=== PATIENT | male | born 1950 | race Caucasian/White ===

== ENCOUNTER 2018-03-01 06:51 | Day surgery (SDC) | payer MEDICARE ==
[2018-02-28 15:17] VITALS: BMI 36.9
[2018-03-01] MEDS ORDERED: Bupivacaine HCl 0.5%/Epinephrine 1:200,000/PF 30 ml Vial ONE (09:04)
[2018-03-01] MEDS ORDERED: Lidocaine 2% PF 5 ML VIAL ONE (09:04)
[2018-03-01] MEDS ORDERED: Levofloxacin 500 mg/D5W 100 ml Premix Bag ONE (09:04)
[2018-03-01] MEDS ORDERED: Fentanyl 100 MCG/2 ML VIAL ONE (09:12)
[2018-03-01] MEDS ORDERED: Propofol 1,000 MG/100 ML VIAL IV ONE (09:13)
[2018-03-01] MEDS ORDERED: PROPOFOL 200 MG/20 ML VIAL ONE (12:58)
--- NOTE | 2018-03-01 15:02 | OP ---
DATE OF PROCEDURE: 03/01/2018 PREOPERATIVE DIAGNOSIS: Malignant melanoma, depth 0.22 mm. POSTOPERATIVE DIAGNOSIS: Malignant melanoma, depth 0.22 mm. PROCEDURES PERFORMED: 1. Wide local excision of malignant melanoma, left upper extremity, 3 cm in greatest diameter. 2. Complex closure with extensive undermining, left upper extremity wound, 9 cm in length. ANESTHESIA: TIVA, local. ESTIMATED BLOOD LOSS: Minimal. COMPLICATIONS: None. SPECIMEN: Left arm specimen marked with two short superior and one long lateral, sent to Pathology for final diagnosis. DESCRIPTION OF PROCEDURE: The patient was taken to the operating room and laid supine on the operating room table. After sedation was obtained, the left upper arm was prepped and draped in a sterile fashion. Elliptical incision was performed with a diameter of 3 cm and diameter of 9 cm long vertically on the left upper arm sharply. Dissection was performed down to the fascia. The full-thickness subcutaneous fat all the way down to fascial incision was performed. The specimen was removed and marked as above. The wound was irrigated. Local anesthetic was applied and meticulous hemostasis was obtained. The wound was closed using 3-0 Vicryl, 4-0 Monocryl, and Dermabond. Extensive undermining was performed to facilitate closure with no tension prior to closure. Job ID: [id number]
--- NOTE | 2018-03-07 06:01 | PQF ---
[facility] POST DISCHARGE CLINICAL DOCUMENTATION IMPROVEMENT CLARIFICATION FORM l Todays Date: 03/07/18 l Patients Name JOSE MARTIN SUTTON l l Admit Date 03/01/18 l Disch Date 03/01/18 Solar Installation Technician Name Santiago Fung Email: [email or web address] Cell: [phone] To be completed by Solar Installation Technician: Present Clinical Indicators - Signs / Symptoms Results and Location in Medical Record [ ] Documentation of: [ ] [ ] Documentation of: [ ] [ ] Documentation of: [ ] [ ] Documentation of: [ ] [ ] Risks [ ] [ ] [ ] Treatment [ ] MELANOMA LEFT ARM QUERY FOR MARGINS OF EXCISED ARM LESION [ ] [ ] To be completed by Physician: RUTH HUBBARD The documentation in this patients record requires clarification to ensure coding compliance and accuracy. Check the appropriate box and include in your discharge summary. [ ] [ ] [x ] total diameter including margin3 cm as stated in op note [ ] Please check this box if this does not apply to this patient [ ] Unable to determine [ ] Other diagnosis: Review the following information and exercise your independent professional judgment in responding to the clarification. Based upon the clinical findings, risk factors, and treatment, please clarify if you are treating one of the above probable or suspected diagnoses. Physician Signature: Date Time MTDD
== END 2018-03-01 10:52 | disposition home or self-care (01) ==
LOC: SDC 06:51
PROVIDERS: ATTEND Surgery
PROC: 0HBCXZZ Excision of Left Upper Arm Skin, External Approach (ICD-10-PCS; principal; 2018-03-01)
DX: C43.62 Malignant melanoma of left upper limb, including shoulder (principal); I25.10 Atherosclerotic heart disease of native coronary artery without angina pectoris; I48.91 Unspecified atrial fibrillation; E27.1 Primary adrenocortical insufficiency; Z79.82 Long term (current) use of aspirin; Z79.84 Long term (current) use of oral hypoglycemic drugs; Z79.52 Long term (current) use of systemic steroids; Z79.899 Other long term (current) drug therapy; Z88.0 Allergy status to penicillin; Z91.048 Other nonmedicinal substance allergy status
CPT/HCPCS: 88305; J0670; J1956; J2001; J2704; J3010

== ENCOUNTER 2019-03-24 11:56 | Outpatient (CLI) | payer MEDICARE ==
[2019-03-24 12:57] LABS: Hemoglobin 14.9 g/dL (14.0-18.0); Mean Corpuscular HGB CONC 32.5 g/dL (32.0-36.0); Mean Corpuscular Hemoglobin 32.4 pg (27.0-31.0); Mean Corpuscular Volume 99.7 fL (78.0-98.0); Mean Platelet Volume 8.9 fL (7.4-10.4); Platelet Count 211 thou/uL (130-400); RBC Distribution Width 11.8 % (11.5-14.5); White Blood Cell (WBC) Count 6.4 thou/uL (4.8-10.8)
[2019-03-24 13:02] LABS: PTT 26.9 SEC (22.9-36.1); Prothrombin Time 12.8 SEC (12.0-14.7)
[2019-03-24 13:41] LABS: Anion Gap 14 mmol/L (10-20); BUN (Urea Nitrogen) 10 mg/dL (8.4-25.7); Calc. Creatinine Clearance 0 mL/min (70-130); Calcium 9.8 mg/dL (7.8-10.44); Carbon Dioxide 23 mmol/L (23-31); Chloride 109 mmol/L (98-107); Estimated GFR-MDRD 83; Glucose 109 mg/dL (80-115); Potassium 4.1 mmol/L (3.5-5.1); Sodium 142 mmol/L (136-145)
--- NOTE | 2019-03-27 00:19 | EKG ---
Test Reason : Blood Pressure : / mmHG Vent. Rate : 066 BPM Atrial Rate : 066 BPM P-R Int : 206 ms QRS Dur : 092 ms QT Int : 396 ms P-R-T Axes : 081 -54 061 degrees QTc Int : 415 ms Normal sinus rhythm with sinus arrhythmia Left axis deviation Inferior infarct (cited on or before 14-MAY-2002) Cannot rule out Anterior infarct (cited on or before 28-AUG-2016) Abnormal ECG When compared with ECG of 28-AUG-2016 13:10, KS interval has decreased Confirmed by Lamont KOCH ([id number]) on 03/27/2019 12:18:36 AM Referred By: ANUPAMA Confirmed By:Lamont KOCH
== END 2019-03-24 11:57 | disposition home or self-care (01) ==
LOC: LABBT 11:56
PROVIDERS: ATTEND Internal Medicine Cardiovascular Disease
DX: Z01.818 Encounter for other preprocedural examination (principal); I48.91 Unspecified atrial fibrillation
CPT/HCPCS: 80048; 85027; 85610; 85730; 93005; 93010

== ENCOUNTER 2019-03-28 05:56 | Observation (INO) | payer MEDICARE ==
[2019-03-28] MEDS ORDERED: Fentanyl 100 MCG/2 ML VIAL ONE (06:42)
[2019-03-28] MEDS ORDERED: Heparin (Artline) 500 ML ONE (06:57)
[2019-03-28] MEDS ORDERED: Phenylephrine HCL 10 MG/ML VIAL ONE (07:00)
[2019-03-28] MEDS ORDERED: Heparin 10,000 UNITS/1 ML VIAL ONE ×4 (07:11→11:38)
[2019-03-28] MEDS ORDERED: Hydrocortisone Sod Succ/PF 100 mg/2 ml Vial ONE (08:50)
[2019-03-28] MEDS ORDERED: Isoproterenol 0.2 MG/1 ML AMP ONE (11:42)
[2019-03-28] MEDS ORDERED: Protamine Sulfate 50 MG/5 ML VIAL ONE (12:45)
[2019-03-28] MEDS ORDERED: Glycopyrrolate 0.2 MG/ML 5 ML SYRINGE ONE (13:15)
[2019-03-28] MEDS ORDERED: Dexamethasone 20 MG/5 ML VIAL ONE (13:15)
[2019-03-28] MEDS ORDERED: Rocuronium Bromide 10 MG/ML (10ML VIAL) ONE (13:15)
[2019-03-28] MEDS ORDERED: PHENYLEPHRINE-NS 100 MCG/ML 10 ML SYRINGE ONE (13:15)
[2019-03-28] MEDS ORDERED: Succinylcholine Chloride 20 MG/ML 10 ml SYRINGE FS ONE (13:15)
[2019-03-28] MEDS ORDERED: Ondansetron PF 4 MG/2 ML Vial ONE (13:15)
[2019-03-28] MEDS ORDERED: PROPOFOL 200 MG/20 ML VIAL ONE (13:15)
[2019-03-28] MEDS ORDERED: Lidocaine 1% PF 5 ML VIAL ONE (13:15)
[2019-03-28] MEDS ORDERED: Furosemide 40 MG/4 ML VIAL ONE (14:12)
[2019-03-28] MEDS ORDERED: Furosemide 20 MG/2 ML VIAL ONE (14:12)
[2019-03-28 15:07] VITALS: BMI 41.1
[2019-03-28] MEDS: metFORMIN 500 MG TAB PO SCH (17:25)
--- NOTE | 2019-03-28 19:25 | OP ---
DATE OF PROCEDURE: 03/28/2019 PROCEDURE PERFORMED: Comprehensive EP testing with 3D mapping and ablation of atrial fibrillation and atypical flutter. CLINICAL INDICATION: Previous atrial fibrillation with incessant atypical flutter. ASA CLASSIFICATION: III. ANESTHESIA: General endotracheal anesthesia per Anesthesiology. ADDITIONAL CARDIAC MEDICATIONS: Isoproterenol 10 mcg/minute infusion. TOTAL HEPARIN GIVEN: 22,000 units. TOTAL PROTAMINE GIVEN: 40 mg. ACUTE COMPLICATIONS: None apparent. TOTAL ABLATION TIME: 1 hour 16 minutes 18 seconds. TOTAL FLUOROSCOPY: Zero. METHODS: After informed consent was obtained, the patient was taken to the EP lab in a fasting state. Both groins were prepped and draped. Using ultrasound guidance, the right and left femoral veins were accessed, and wires were inserted into the central venous system. Wires were used to place an 8-Czech and an 11-Czech sheaths in the left groin and two 8-Czech sheaths in the right groin. All 8-Czech sheaths were replaced by long sheaths for catheter stability. An echo probe was placed in the left groin and advanced to the right atrium and right ventricle for imaging. A circular and ablation catheters were placed in the right groin and advanced up to the right atrium and the coronary sinus. A 3D map was obtained. The patient was then fully anticoagulated. Transseptal catheterization was performed with ultrasound guidance, and a 3D map was obtained of the left atrium. A temperature probe was placed in the esophagus adjacent to a sensor for visualization of the 3D mapping system. Ablation was delivered re-isolating the posterior wall of the left atrium as well as the roof and the floor of the left atrium and the coronary sinus. The patient was found to have multiple flutters, which were entrained to both the right atrium and the left atrium. At the conclusion of procedure, catheters were withdrawn. Heparin was reversed. Sheaths were pulled. Hemostasis was achieved with suture closure. RESULTS: 1. Baseline intervals: Initial flutter cycle length 240 milliseconds, HV interval 63 milliseconds and did not change throughout the procedure. 2. Atrial function: The patient was originally in an atypical flutter at 240 milliseconds. This was mapped to the roof of the left atrium and ablated. This converted to a slower flutter, which was mapped to the right atrial roof, which was ablated. Another flutter was found in the posterior wall, where residual conduction was seen between the pulmonary veins. This was ablated, and finally, an atrial tachycardia was found in the low right atrium, which was ablated. The coronary sinus was re-isolated, and the SVC was also isolated. 3. Ablation details: A total of 1 hour 16 minutes 18 seconds of RF was delivered with a [employer] [place] open-irrigated, contact force, sensor enabled ablation catheter. IMPRESSION: Successful ablation of 4 atypical flutters and circuit for atrial fibrillation. RECOMMENDATION: Continue with anticoagulation for a minimum of 3 months. Job ID: [id number]
[2019-03-28] MEDS ORDERED: Aspirin 81 mg Enteric Coated Tablet PO SCH (21:00)
[2019-03-28] MEDS ORDERED: Multivit, Therapeutic 1 TAB PO SCH (21:00)
[2019-03-28] MEDS ORDERED: Rosuvastatin 10 MG TAB PO SCH (21:00)
[2019-03-28] MEDS: Furosemide 40 MG/4 ML VIAL SLOW IVP SCH (21:12)
[2019-03-29 07:52] VITALS: BP 147/70; TEMP 98.7
[2019-03-29] MEDS ORDERED: predniSONE 5 MG TAB PO SCH (09:00)
[2019-03-29] MEDS ORDERED: Rivaroxaban 10 MG TAB PO SCH (09:00)
[2019-03-29] MEDS ORDERED: Fenofibrate Nanocrystallized 145 MG TAB PO SCH (09:00)
[2019-03-29] MEDS ORDERED: Fludrocortisone Acetate 0.1 MG TAB PO SCH (09:00)
[2019-03-29] MEDS: metFORMIN 500 MG TAB PO SCH (09:13)
[2019-03-29] MEDS: Furosemide 40 MG/4 ML VIAL SLOW IVP SCH (09:15)
--- NOTE | 2019-03-30 05:20 | DIS ---
DATE OF ADMISSION: 03/28/2019 DATE OF DISCHARGE: 03/29/2019 DIAGNOSIS: Atrial fibrillation. PROCEDURES PERFORMED: Successful ablation of four atypical flutters and circuit for atrial fibrillation with electrophysiology study and three-dimensional mapping. Total ablation time 1 hour and 16 minutes and 18 seconds. COMPLICATIONS: None. HISTORY OF PRESENT ILLNESS: Mr. Garza is a pleasant 68-year-old gentleman with history of persistent atrial arrhythmias . His first ablation in 2010 was extensive at 105 minutes. Subsequent redo ablations were significantly smaller requiring 20 minutes and 5 minutes respectively. He also had CTI ablation, which is his most recent ablation. He had recurrent incessant atypical atrial flutter and was taken back to the EP lab by Dr. Saucedo, where he was found to be in atypical atrial flutter that was mapped to the left atrium roof and was ablated. Subsequent flutter was then mapped to the right atrial roof that was ablated. The third flutter was found in the posterior wall, where there was residual connection seen between the pulmonary veins, which was ablated. Finally, atrial tachycardia was found in the low right atrium that was ablated. Coronary sinus was re-isolated and SVC was also isolated. A total of 1 hour 16 minutes 18 seconds RF energy lesions were delivered. The patient has been stable overnight. He is not having any shortness of breath, chest pain, palpitations, bleeding at the groin sites and feels well, eager to discharge home. REVIEW OF SYSTEMS: 12-point review of systems was negative except that listed above in the HPI. OBJECTIVE: GENERAL: The patient is alert and oriented. Speech is clear. Affect is appropriate. He is in no apparent distress. NECK: Supple without jugular venous distention. LUNGS: There are some fine crackles in the right lower lobe. Otherwise, lungs are clear to auscultation. Respirations are even and unlabored with good bilateral excursion. HEART: Rate is irregularly irregular with crisp S1 and S2. PMI is nondisplaced. ABDOMEN: Obese, soft, and nontender without palpable masses. Hepatojugular reflux is negative. EXTREMITIES: Warm and dry to touch. Well perfused without clubbing, cyanosis, or edema. Bilateral groin sites are stable. No evidence of bleeding or internal hematoma, and mild tenderness on palpation is seen. NEUROLOGIC: Grossly intact and nonfocal. Gait is stable. VITAL SIGNS: Temperature 98.7 degrees Fahrenheit, pulse 61, blood pressure is 135/69, respirations 18, and oxygen is 97% on room air. CONDITION AT DISCHARGE: Stable. DISCHARGE INSTRUCTIONS: No lifting more than 10 pounds for 1 week. No soaking baths for 1 week. DISCHARGE MEDICATIONS: 1. Prednisone daily. 2. Crestor 10 mg at bedtime. 3. Metformin 500 mg p.o. b.i.d. 4. Multivitamin at bedtime. 5. Florinef 0.1 mg daily. 6. Tricor 145 mg q.a.m. 7. Vitamin D3 of 2000 units daily. 8. Sildenafil as needed. New prescriptions: 1. Carafate 1 g p.o. q.i.d. x2 weeks. 2. Xarelto 20 mg p.o. q.p.m. 3. Protonix 40 mg daily for 30 days. 4. Furosemide 40 mg p.o. p.r.n. shortness of breath to be taken with 20 mEq potassium and colchicine 0.6 mg p.o. b.i.d. x2 weeks. DISCHARGE INSTRUCTIONS: The patient will continue anticoagulation with Xarelto. He does have an inclusion of Watchman at this point. We will continue anticoagulation with recent ablation during the acute inflammatory and recovery phase. Long-term, he will not require anticoagulation if left atrial appendage has been closed. He will continue his medication until directed to discontinue by TCA. He has maintained sinus rhythm overnight with no early recurrence thus far. His vital signs are stable. He is in good condition to discharge home. We will see him back in 6 weeks or sooner if symptoms dictate. Job ID: [id number]
== END 2019-03-29 12:23 | disposition home or self-care (01) ==
LOC: CCL 05:56 → 2SW 13:16
PROVIDERS: ADMIT Internal Medicine Cardiovascular Disease; ATTEND Internal Medicine Cardiovascular Disease
PROC: 4A023FZ Measurement of Cardiac Rhythm, Percutaneous Approach (ICD-10-PCS; principal; 2019-03-28)
PROC: 4A0234Z Measurement of Cardiac Electrical Activity, Percutaneous Approach (ICD-10-PCS; 2019-03-28)
PROC: 02583ZZ Destruction of Conduction Mechanism, Percutaneous Approach (ICD-10-PCS; 2019-03-28)
DX: I48.19 Other persistent atrial fibrillation (principal); I48.92 Unspecified atrial flutter; G47.30 Sleep apnea, unspecified; E78.5 Hyperlipidemia, unspecified; E11.9 Type 2 diabetes mellitus without complications; E27.1 Primary adrenocortical insufficiency; Z79.84 Long term (current) use of oral hypoglycemic drugs; Z79.82 Long term (current) use of aspirin; Z79.899 Other long term (current) drug therapy; Z86.73 Personal history of transient ischemic attack (TIA), and cerebral infarction without residual deficits; Z88.0 Allergy status to penicillin; Z88.8 Allergy status to other drugs, medicaments and biological substances; Z99.89 Dependence on other enabling machines and devices
CPT/HCPCS: 76942; 85347 ×2; 92960; 93005 ×2; 93613; 93623; 93655; 93656; 93662; 96374; 96376; C1731; C1732 ×2; C1759; C1760; C1769; G0378 ×2; 93010; J1100; J1644; J1720; J1940; J2001; J2370; J2405; J2704; J2720; J3010; J7512

== ENCOUNTER 2020-03-12 17:23 | Inpatient (IN) | payer MEDICARE ==
[~2020-03-12 17:23] MED LIST: Iopamidol-370 76% 500 ML 1 ML ONE
[2020-03-12 18:17] LABS: #Basophils 0.1 thou/uL (0.0-0.2); #Eosinphils 0.1 thou/uL (0.0-0.7); #Lymphocytes 1.5 thou/uL (1.20-3.40); #Monocytes 0.9 thou/uL (0.11-0.59); #Neutrophils 8.5 thou/uL (1.40-6.50); %Basophils 0.6 % (0.0-1.0); %Eosinophils 0.8 % (0.0-10.0); %Lymphocytes 13.3 % (21.0-51.0); %Monocytes 8.1 % (0.0-10.0); %Neutrophils 77.2 % (42.0-75.0); Hemoglobin 15.3 g/dL (14.0-18.0); Mean Corpuscular HGB CONC 34.1 g/dL (32.0-36.0); Mean Corpuscular Hemoglobin 33.3 pg (27.0-31.0); Mean Corpuscular Volume 97.6 fL (78.0-98.0); Mean Platelet Volume 8.3 fL (7.4-10.4); Platelet Count 270 thou/uL (130-400); RBC Distribution Width 11.7 % (11.5-14.5); Red Blood Cell (RBC) Count 4.59 mill/uL (4.70-6.10)
[2020-03-12] MEDS ORDERED: Diltiazem 125 MG/25 ML ONE ×2 (18:19→18:23)
[2020-03-12 18:41] LABS: ALT (SGPT) 29 U/L (8-55); AST (SGOT) 21 U/L (5-34); Albumin 4.5 g/dL (3.4-4.8); Alkaline Phosphatase 43 U/L (40-110); Anion Gap 15 mmol/L (10-20); BUN (Urea Nitrogen) 15 mg/dL (8.4-25.7); Bilirubin, Total 0.8 mg/dL (0.2-1.2); Calc. Creatinine Clearance 0 mL/min (70-130); Calcium 10.2 mg/dL (7.8-10.44); Carbon Dioxide 23 mmol/L (23-31); Chloride 104 mmol/L (98-107); Globulin 2.5 g/dL (2.4-3.5); Glucose 132 mg/dL (83-110); Potassium 4.3 mmol/L (3.5-5.1); Sodium 138 mmol/L (136-145)
--- NOTE | 2020-03-12 18:56 | RAD ---
PORTABLE CHEST: 03/12/20 HISTORY: Increasing shortness of breath. Status post shoulder surgery on . Heart size is borderline. There is elevation of the right hemidiaphragm. There is some subsegmental a telectatic changes in the lung bases. IMPRESSION: Subsegmental atelectasis in the lung bases. POS: OFF
[2020-03-12] MEDS ORDERED: HYDROcodone/Acetaminophen 5/325 mg Tablet ONE (20:03)
--- NOTE | 2020-03-12 20:11 | CT ---
CT ANGIO OF CHEST PERFORMED WITH INTRAVENOUS CONTRAST ENHANCEMENT WITH 3D RECONSTRUCTIONS: 03/12/20 HISTORY: Shortness of breath. History of rotator cuff surgery last . The lungs are clear of any focal infiltrative process. There are atelectatic changes seen in the lung bases. The thoracic aorta is normal in caliber. A Watchman type occlusive device is seen within the left atrial appendage. There is good pulmonary artery opacification. There is evidence of bilateral upper and lower lobe pul monary emboli. Right ventricle does not appear dilated. No bowing of the septum. Visualized liver parenchyma shows no focal findings. IMPRESSION: Bilateral pulmonary emboli. POS: OFF
[2020-03-12] MEDS ORDERED: Enoxaparin Sodium 30 MG/0.3 ML SYRINGE ONE (20:47)
[2020-03-12] MEDS ORDERED: Enoxaparin Sodium 100 MG/ML SYRINGE ONE (20:47)
[2020-03-12] MEDS ORDERED: Morphine 2 MG/ML VIAL SLOW IVP PRN (21:25)
[2020-03-12] MEDS ORDERED: Dextrose 50% Abboject 50 ML SYRINGE SLOW IVP PRN (21:27)
[2020-03-12] MEDS ORDERED: Dextrose 5% in Water 1,000 ML IV PRN (21:27)
[2020-03-12] MEDS ORDERED: HumaLOG 300 UNITS/3 ML VIAL SC PRN (21:27)
--- NOTE | 2020-03-12 21:29 | PDOC.HHP ---
Hospitalist HPI - History of Present Illness Shortness of breath History of Present Illness: This is a 69-year-old male patient with a history of atrial fibrillation s/p watchman/ablation, he has been off anticoagulation for a while. Also has diabetes, [place] disease hypertension and hyperlipidemia. He presents today with worsening shortness of breath which started after having had surgery for his right rotator cuff repair 5 days ago. CTA notes bilateral PE. A day after surgery patient notes that he started having mild shortness of breath which progressively worsened. He decided to come to the ED for further evaluation. At presentation blood pressure was 149/79, pulse 93, respiratory rate 22, temperature 98.9 and saturating 94% on room air. While being monitored it was noted that his heart went into atrial fibrillation with RVR for which she was given diltiazem 20 mg IV push and 5 mg per with reversion to regular rate. Labs showed a mild leukocytosis of 11.0, hemoglobin 15.3, platelets 270 D-dimer was 3.48. Chemistry was essentially within normal limits. Chest x-ray showed subsegmental atelectasis in lung bases with a CTA ultimately revealing bilateral pulmonary embolism. He was started on 1 mg/kg Lovenox Hospitalist team consulted for admission Hospitalist ROS - Review of Systems Constitutional: denies: fever, chills, sweats Respiratory: reports: shortness of breath, SOB with excertion. denies: cough, hemoptysis Cardiovascular: denies: chest pain, palpitations, orthopnea, paroxysmal noc. dyspnea Genitourinary: denies: dysuria, frequency, incontinence Neurological: denies: weakness, numbness, incoordination All other systems reviewed; all pertinent +/- noted in HPI/Subj - Medication Medications: Medications: Currently refer to ambulatory list. Allergies: Penicillin, prasugrel Hospitalist History - Past Medical History Cardiac: reports: AFIB, HTN - Past Surgical History Other Surgical History: Watchman procedure, A. fib ablation - Family History Family History: reports: no pertinent history - Social History Smoking Status: Never smoker Alcohol: reports: Occassional Living Situation: With Family - Exam General Appearance: awake alert General - other findings: Mild respiratory distress Eye: PERRL, anicteric sclera Neck: supple, symmetric, no JVD Heart: RRR, no murmur, no gallops Respiratory: CTAB, no wheezes, no rales, no ronchi Gastrointestinal: soft, non-tender, non-distended, normal bowel sounds Extremities: no cyanosis, no clubbing, no edema Neurological: cranial nerve grossly intact, no weakness, no focal deficits Musculoskeletal: normal tone, normal strength Psychiatric: normal affect, normal behavior, A&O x 3 Hospitalist Results - Labs Result Diagrams: 03/14/20 05:23 03/14/20 05:23 Lab results: WBC 11.0 thou/uL (4.8-10.8) H 03/12/20 17:53 Hgb 15.3 g/dL (14.0-18.0) 03/12/20 17:53 Hct 44.8 % (42.0-52.0) 03/12/20 17:53 MCV 97.6 fL (78.0-98.0) 03/12/20 17:53 Plt Count 270 thou/uL (130-400) 03/12/20 17:53 Neutrophils % 77.2 % (42.0-75.0) H 03/12/20 17:53 Sodium 138 mmol/L (136-145) 03/12/20 17:53 Potassium 4.3 mmol/L (3.5-5.1) 03/12/20 17:53 Chloride 104 mmol/L (98-107) 03/12/20 17:53 Carbon Dioxide 23 mmol/L (23-31) 03/12/20 17:53 BUN 15 mg/dL (8.4-25.7) 03/12/20 17:53 Creatinine 0.95 mg/dL (0.7-1.3) 03/12/20 17:53 Glucose 132 mg/dL (83-110) H 03/12/20 17:53 Calcium 10.2 mg/dL (7.8-10.44) 03/12/20 17:53 Total Bilirubin 0.8 mg/dL (0.2-1.2) 03/12/20 17:53 AST 21 U/L (5-34) 03/12/20 17:53 ALT 29 U/L (8-55) 03/12/20 17:53 Alkaline Phosphatase 43 U/L (40-110) 03/12/20 17:53 Troponin I 0.020 ng/mL (< 0.028) 03/12/20 17:53 Serum Total Protein 7.0 g/dL (5.8-8.1) 03/12/20 17:53 Albumin 4.5 g/dL (3.4-4.8) 03/12/20 17:53 Hospitalist H&P A/P - Plan Plan: This is a [id number]-year-old patient with history of A. fib, hypertension who presents with shortness of breath status post right rotator cuff repair and found to have bilateral PE. Bilateral PE Likely post surgical Start anticoagulation on Lovenoxtransition to DOAC on discharge Monitor on telemetry Oxygen therapy as needed. A. fib with RVR. Patient has A. fib RVR aborted with diltiazem We will have cardiology evaluation in a.m. Hypertension Resume BP meds once verified Rotator cuff surgery Consult surgery for evaluation. [place] disease Resume prednisone and fludrocortisone once verified. VT prophylaxistherapeutic on Lovenox CODE STATUSfull code
[2020-03-12] MEDS: Sodium Chloride 0.9% 1,000 ML IV SCH (22:52)
[2020-03-13] MEDS ORDERED: HYDROcodone/Acetaminophen 7.5/325 mg Tablet ONE (01:20)
[2020-03-13] MEDS: HYDROcodone/Acetaminophen 7.5/325 mg Tablet PO PRN ×4 (01:30→20:30)
[2020-03-13 04:44] LABS: #Basophils 0.1 thou/uL (0.0-0.2); #Eosinphils 0.2 thou/uL (0.0-0.7); #Lymphocytes 2.5 thou/uL (1.20-3.40); #Neutrophils 6.4 thou/uL (1.40-6.50); %Basophils 0.6 % (0.0-1.0); %Eosinophils 1.9 % (0.0-10.0); %Lymphocytes 24.2 % (21.0-51.0); %Monocytes 9.5 % (0.0-10.0); %Neutrophils 63.7 % (42.0-75.0); Hemoglobin 14.8 g/dL (14.0-18.0); Mean Corpuscular HGB CONC 33.5 g/dL (32.0-36.0); Mean Corpuscular Hemoglobin 33.1 pg (27.0-31.0); Mean Corpuscular Volume 98.9 fL (78.0-98.0); Mean Platelet Volume 8.4 fL (7.4-10.4); Platelet Count 226 thou/uL (130-400); RBC Distribution Width 11.7 % (11.5-14.5); Red Blood Cell (RBC) Count 4.45 mill/uL (4.70-6.10); White Blood Cell (WBC) Count 10.1 thou/uL (4.8-10.8)
[2020-03-13 05:26] LABS: Anion Gap 16 mmol/L (10-20); BUN (Urea Nitrogen) 13 mg/dL (8.4-25.7); Calc. Creatinine Clearance 144 mL/min (70-130); Calcium 9.8 mg/dL (7.8-10.44); Carbon Dioxide 22 mmol/L (23-31); Chloride 103 mmol/L (98-107); Glucose 121 mg/dL (83-110); Potassium 3.7 mmol/L (3.5-5.1); Sodium 137 mmol/L (136-145)
[2020-03-13 05:33] VITALS: BMI 39.8
[2020-03-13] MEDS ORDERED: Enoxaparin Sodium 120 MG/0.8 ML SYRINGE SC SCH ×2 (09:00)
--- NOTE | 2020-03-13 12:18 | PDOC.HOSPP ---
- Subjective Encounter Date: 03/13/20 Encounter Time: 12:16 Subjective: Raul dia is a very pleasant 69-year-old who is morbidly obese was admitted to the hospital for worsening shortness of breath. He was noted to have bilateral pulmonary embolism and he is placed in the hospital for anticoa gulation. He was started on Lovenox which she seems to be tolerating so far. I suspect his venous thromboembolism was provoked secondary to the recent surgery and immobilization. He appears to be hemodynamically stable at this time. - Objective Vital Signs & Weight: Vital Signs (12 hours) Temp Pulse Resp BP BP Pulse Ox 03/13/20 08:24 97.8 F 77 22 H 127/69 94 L 03/13/20 05:20 98.9 F 74 22 H 139/83 95 Weight Admit Weight 285 lb 9.6 oz Weight 285 lb 9.6 oz Result Diagrams: 03/13/20 04:27 03/13/20 04:27 Additional Labs: Accuchecks 03/13/20 03/13/20 12:07 05:33 POC Glucose 113 H 112 H Radiology Reviewed by me: Yes EKG Reviewed by me: Yes Hospitalist ROS - Review of Systems Constitutional: reports: weakness, malaise Respiratory: reports: shortness of breath, SOB with excertion Neurological: reports: weakness - Medication Medications: Active Medications Generic Name Dose Route Start Last Admin Trade Name Freq PRN Reason Stop Dose Admin Hydrocodone Bitart/Acetaminophen 1 tab 03/12/20 21:26 03/13/20 05:28 Hydrocodone/Acetaminophen 7.5/325 Mg Tablet PO 1 tab Q4H PRN Administration Mild Pain (1-3) Enoxaparin Sodium 130 mg 03/13/20 09:00 03/13/20 08:32 Enoxaparin Sodium 120 Mg/0.8 Ml Syringe SC 130 mg 0900,2100 AMIE Administration Sodium Chloride 1,000 mls @ 75 mls/hr 03/12/20 21:30 03/12/20 22:52 Normal Saline 0.9% IV 1,000 mls .[id number] AMIE Administration Sodium Chloride 10 ml 03/13/20 09:00 03/13/20 08:33 Flush - Normal Saline 10 Ml Syringe IVF 10 ml Q12HR AMIE Administration - Exam General Appearance: NAD, awake alert Eye: PERRL, anicteric sclera ENT: normocephalic atraumatic, no oropharyngeal lesions Neck: supple, symmetric, no JVD, no thyromegaly Heart: RRR, no murmur Respiratory: CTAB, wheezes Gastrointestinal: soft, non-tender, non-distended, normal bowel sounds Neurological: cranial nerve grossly intact Psychiatric: normal affect, normal behavior, A&O x 3 Hosp A/P (1) Acute pulmonary embolism Code(s): I26.99 - OTHER PULMONARY EMBOLISM WITHOUT ACUTE COR PULMONALE Status: Acute Qualifiers: Pulmonary embolism type: other Acute cor pulmonale presence: without acute cor pulmonale Qualified Code(s): I26.99 - Other pulmonary embolism without acute cor pulmonale Plan: I am going to continue him on anticoagulation. (2) Acute respiratory failure Code(s): J96.00 - ACUTE RESPIRATORY FAILURE, UNSP W HYPOXIA OR HYPERCAPNIA Status: Acute Qualifiers: Respiratory failure complication: hypoxia Qualified Code(s): J96.01 - Acute respiratory failure with hypoxia (3) KIA (obstructive sleep apnea) Code(s): G47.33 - OBSTRUCTIVE SLEEP APNEA (ADULT) (PEDIATRIC) Status: Acute Plan: He can continue his home CPAP as needed. (4) Morbid obesity Code(s): E66.01 - MORBID (SEVERE) OBESITY DUE TO EXCESS CALORIES Status: Acute - Plan old records reviewed/req, PT/OT, DVT proph w/lovenox
[2020-03-13] MEDS: Sodium Chloride 0.9% 1,000 ML IV SCH (13:33)
[2020-03-13] MEDS: Metoprolol Tartrate 25 MG TAB PO SCH ×2 (18:49→20:30)
--- NOTE | 2020-03-13 18:54 | CON ---
DATE OF CONSULTATION: REASON FOR CONSULTATION: Atrial fibrillation. Dr. Starkey is Mr. Garza's primary division leader. HISTORY OF PRESENT ILLNESS: Mr. Garza is a 69-year-old gentleman, who recently diagnosed with pulmonary embolus. He has an extensive history of atrial fibrillation. He has been ablated on several occasions. He has been in sinus rhythm. He has also had a Watchman device. He has been in atrial fibrillation, but appears to be rate controlled. PAST MEDICAL HISTORY: Atrial fibrillation, hypertension, Watchman device, status post ablation. SOCIAL HISTORY: No current tobacco or alcohol use. FAMILY HISTORY: Negative for CAD. REVIEW OF SYSTEMS: A 10-point review of systems is reviewed and as above, otherwise negative. PHYSICAL EXAMINATION: GENERAL: Patient is a pleasant male, who is in no acute distress. The patient appears their stated age. VITAL SIGNS: Blood pressure 112/83, pulse 76, temperature afebrile. NEUROLOGIC: The patient is alert and oriented x3 with no focal neurologic deficits. HEENT: Sclerae without icterus. Mouth has moist mucous membranes with normal pallor. NECK: No JVD. Carotid upstroke brisk. No bruits bilaterally. LUNGS: Clear to auscultation with unlabored respirations. BACK: No scoliosis or kyphosis. CARDIAC: Irregularly regular. ABDOMEN: Soft, nontender, nondistended. No peritoneal signs present. No hepatosplenomegaly. No abnormal striae. EXTREMITIES: 2+ femoral and 2+ dorsalis pedis pulses. No cyanosis, clubbing, or edema. SKIN: No gross abnormalities. PERTINENT LABORATORY DATA: Hemoglobin 14.8, hematocrit 44.1. IMPRESSION: 1. Atrial fibrillation. 2. Pulmonary embolism. RECOMMENDATIONS: 1. Would recommend restarting anticoagulation therapy for PE. 2. The patient currently on metoprolol 12.5 mg p.o. t.i.d. We will increase to 25 t.i.d. 3. Add digoxin with p.o. loading. 4. Otherwise, I have no further recommendations. Job ID: [id number]
[2020-03-13] MEDS: Digoxin 0.25 MG TAB PO SCH (19:01)
[2020-03-14] MEDS: Digoxin 0.25 MG TAB PO SCH ×3 (00:05→11:04)
[2020-03-14] MEDS: HYDROcodone/Acetaminophen 7.5/325 mg Tablet PO PRN (00:05)
[2020-03-14] MEDS: Sodium Chloride 0.9% 1,000 ML IV SCH ×2 (02:48→15:42)
[2020-03-14 05:50] LABS: #Basophils 0.1 thou/uL (0.0-0.2); #Eosinphils 0.2 thou/uL (0.0-0.7); #Lymphocytes 1.6 thou/uL (1.20-3.40); #Monocytes 0.8 thou/uL (0.11-0.59); #Neutrophils 5.3 thou/uL (1.40-6.50); %Basophils 0.7 % (0.0-1.0); %Eosinophils 2.7 % (0.0-10.0); %Lymphocytes 20.2 % (21.0-51.0); %Monocytes 9.6 % (0.0-10.0); %Neutrophils 66.7 % (42.0-75.0); Hemoglobin 13.8 g/dL (14.0-18.0); Mean Corpuscular HGB CONC 32.4 g/dL (32.0-36.0); Mean Corpuscular Hemoglobin 31.6 pg (27.0-31.0); Mean Corpuscular Volume 97.7 fL (78.0-98.0); Mean Platelet Volume 8.4 fL (7.4-10.4); Platelet Count 230 thou/uL (130-400); RBC Distribution Width 11.5 % (11.5-14.5); Red Blood Cell (RBC) Count 4.37 mill/uL (4.70-6.10)
[2020-03-14 06:14] LABS: Anion Gap 14 mmol/L (10-20); BUN (Urea Nitrogen) 12 mg/dL (8.4-25.7); Calc. Creatinine Clearance 166 mL/min (70-130); Calcium 9.1 mg/dL (7.8-10.44); Carbon Dioxide 23 mmol/L (23-31); Chloride 103 mmol/L (98-107); Glucose 106 mg/dL (83-110); Potassium 3.8 mmol/L (3.5-5.1); Sodium 136 mmol/L (136-145)
[2020-03-14] MEDS: Apixaban 5 MG TAB PO SCH ×2 (08:24→20:52)
[2020-03-14 08:42] LABS: SARS-CoV-2 PCR by NAA Not Detected (NotDetected)
--- NOTE | 2020-03-14 15:42 | PDOC.HOSPP ---
- Subjective Encounter Date: 03/14/20 Encounter Time: 15:40 Subjective: Patient seen and evaluated today. 69-year-old morbidly obese luis being treated for acute respiratory failure secondary to pulmonary embolism. He has had some runs of atrial fibrillation. He was seen yesterday by cardiology who started him on digoxin. He also was placed on Lopressor mostly for rate control. He does have a watchman device in place. He has had multiple cardioversions in the past. - Objective Vital Signs & Weight: Vital Signs (12 hours) Temp Pulse Resp BP BP Pulse Ox 03/14/20 11:38 97.8 F 88 22 H 139/67 93 L 03/14/20 11:04 103 H 03/14/20 08:00 98.3 F 83 20 136/69 94 L 03/14/20 04:00 98.3 F 100 18 138/77 93 L Weight Admit Weight 285 lb 9.6 oz Weight 285 lb 9.6 oz I&O: 03/13/20 03/14/20 03/15/20 06:59 06:59 06:59 Intake Total 2004 Output Total 1975 Balance 29 Result Diagrams: 03/14/20 05:23 03/14/20 05:23 Additional Labs: Accuchecks 03/14/20 03/13/20 03/13/20 11:25 20:28 16:26 POC Glucose 133 H 140 H 96 Radiology Reviewed by me: Yes EKG Reviewed by me: Yes Hospitalist ROS - Review of Systems Constitutional: reports: weakness, malaise Respiratory: reports: shortness of breath, SOB with excertion, wheezing - Medication Medications: Active Medications Generic Name Dose Route Start Last Admin Trade Name Ryneq PRN Reason Stop Dose Admin Hydrocodone Bitart/Acetaminophen 1 tab 03/12/20 21:26 03/14/20 00:05 Hydrocodone/Acetaminophen 7.5/325 Mg Tablet PO 1 tab Q4H PRN Administration Mild Pain (1-3) Apixaban 10 mg 03/14/20 09:00 03/14/20 08:24 Apixaban 5 Mg Tab PO 10 mg BID AMIE Administration Sodium Chloride 1,000 mls @ 75 mls/hr 03/12/20 21:30 03/14/20 02:48 Normal Saline 0.9% IV 1,000 mls .[id number] AMIE Administration Sodium Chloride 10 ml 03/13/20 09:00 03/14/20 08:25 Flush - Normal Saline 10 Ml Syringe IVF Not Given Q12HR AMIE - Exam General Appearance: awake alert Eye: PERRL, anicteric sclera ENT: normocephalic atraumatic, no oropharyngeal lesions Neck: supple, symmetric, no JVD, no thyromegaly Heart: RRR, no murmur, no gallops, no rubs Respiratory: CTAB, no wheezes Gastrointestinal: soft, non-tender, non-distended Neurological: cranial nerve grossly intact Psychiatric: normal affect, normal behavior, A&O x 3 Hosp A/P (1) Acute pulmonary embolism Code(s): I26.99 - OTHER PULMONARY EMBOLISM WITHOUT ACUTE COR PULMONALE Status: Acute Qualifiers: Pulmonary embolism type: other Acute cor pulmonale presence: without acute cor pulmonale Qualified Code(s): I26.99 - Other pulmonary embolism without acute cor pulmonale Plan: He will continue Eliquis 10 mg twice daily. This will be switched over to 5 mg twice daily after 5 days. (2) Acute respiratory failure Code(s): J96.00 - ACUTE RESPIRATORY FAILURE, UNSP W HYPOXIA OR HYPERCAPNIA Status: Acute Qualifiers: Respiratory failure complication: hypoxia Qualified Code(s): J96.01 - Acute respiratory failure with hypoxia (3) KIA (obstructive sleep apnea) Code(s): G47.33 - OBSTRUCTIVE SLEEP APNEA (ADULT) (PEDIATRIC) Status: Acute (4) Morbid obesity Code(s): E66.01 - MORBID (SEVERE) OBESITY DUE TO EXCESS CALORIES Status: Acute (5) Atrial fibrillation Code(s): I48.91 - UNSPECIFIED ATRIAL FIBRILLATION Status: Acute Qualifiers: Atrial fibrillation type: permanent Qualified Code(s): I48.21 - Permanent atrial fibrillation Plan: The patient is on Lopressor 25 mg 3 times daily. This will be continued for now. - Plan old records reviewed/req, PT/OT
--- NOTE | 2020-03-14 17:00 | PRG ---
DATE OF SERVICE: 03/14/2020 SUBJECTIVE: Mr. Garza is doing better. No current complaints. He would like to go home. He has recently been placed on Eliquis. Enoxaparin was discontinued. Initially, I added diltiazem, but his heart rate increased. He was then switched back to metoprolol. OBJECTIVE: VITAL SIGNS: Blood pressure 139/67, pulse 88, temperature afebrile. LUNGS: Clear to auscultation. HEART: Regular rate and rhythm with extrasystolic beat. ABDOMEN: Soft, nontender, nondistended. EXTREMITIES: No edema. LABORATORY DATA: Telemetry monitoring shows sinus rhythm with PACs. IMPRESSION: 1. PE. 2. Premature atrial contractions. RECOMMENDATIONS: Agree with Eliquis in addition to a beta marga therapy. Plan is to follow up with Dr. Caraballo, his primary vine pruner. Otherwise, I have no further recommendations. Okay from my standpoint to discharge home. Job ID: [id number]
[2020-03-14] MEDS: Metoprolol Tartrate 25 MG TAB PO SCH (20:51)
[2020-03-14] MEDS: Acetaminophen 325 MG TAB PO PRN (23:02)
[2020-03-15] MEDS: Acetaminophen 325 MG TAB PO PRN (06:25)
[2020-03-15 08:00] VITALS: BP 139/86; TEMP 97.6
[2020-03-15] MEDS: Metoprolol Tartrate 25 MG TAB PO SCH (08:32)
[2020-03-15] MEDS: Apixaban 5 MG TAB PO SCH (08:32)
[2020-03-15] MEDS: HYDROcodone/Acetaminophen 7.5/325 mg Tablet PO PRN (08:34)
--- NOTE | 2020-03-15 15:16 | PDOC.DS.DS ---
Provider - Provider Date of Admission: 03/12/20 20:58 Date of Discharge: 03/15/20 Admitting Provider: Christiano Zuleta MD Consultations: Cardiology Primary Care Physician: Ale Guzman MD Course - Hospital Course Hospital Course: This patient is a 69-year-old with extensive cardiac history including atrial fibrillation that appears to be long and persistent, he is a diabetic, he has severe sleep apnea who presented to the hospital worsening shortness of breath. He was admitted for further evaluation and treatment. He was noted to have bilateral pulmonary embolus and this was felt to be the etiology of his dyspnea. The pulmonary embolus appears to have been provoked from recent right shoulder surgery. He has been more or less immobilized at home. He was placed on anticoagulation. He had a very brief run of atrial fibrillation with RVR and was seen in consult by assistant quality manager. Cardiology agreed with rate control strategy and anticoagulation for his pulmonary embolism. The patient will follow up with his outpatient assistant quality manager. He will take Eliquis 10 mg twice daily for 4 more days and switch over to 5 mg twice daily for the next 6 months. I have also prescribed Lopressor 25 mg 3 times daily. He will follow up with his assistant quality manager as outpatient. Resuscitation Status: 03/12/20 21:20 Resuscitation Status Routine Resuscitation Status: FULL: Full Resuscitation - Labs Lab Results: 03/14/20 05:23 03/14/20 05:23 Abnormal Lab Results - Last 48 hrs 03/14/20 05:23: RBC 4.37 L, Hgb 13.8 L, MCH 31.6 H, Lymphocytes % 20.2 L, Monocytes # 0.8 H - Physical Exam Vitals: Vital Signs (12 hours) Temp Pulse Resp BP Pulse Ox 03/15/20 08:00 95 03/15/20 07:00 97.6 F 91 22 H 139/86 95 03/15/20 03:27 98.2 F 73 26 H 145/82 H 94 L Weight Admit Weight 285 lb 9.6 oz Weight 285 lb 9.6 oz Physical Exam: The patient was seen and examined on the day of discharge. Problem - Problem (1) Acute pulmonary embolism Code(s): I26.99 - OTHER PULMONARY EMBOLISM WITHOUT ACUTE COR PULMONALE Status: Acute Qualifiers: Pulmonary embolism type: other Acute cor pulmonale presence: without acute cor pulmonale Qualified Code(s): I26.99 - Other pulmonary embolism without a cute cor pulmonale (2) Acute respiratory failure Code(s): J96.00 - ACUTE RESPIRATORY FAILURE, UNSP W HYPOXIA OR HYPERCAPNIA Status: Acute Qualifiers: Respiratory failure complication: hypoxia Qualified Code(s): J96.01 - Acute respiratory failure with hypoxia (3) KIA (obstructive sleep apnea) Code(s): G47.33 - OBSTRUCTIVE SLEEP APNEA (ADULT) (PEDIATRIC) Status: Acute (4) Morbid obesity Code(s): E66.01 - MORBID (SEVERE) OBESITY DUE TO EXCESS CALORIES Status: Acute (5) Atrial fibrillation Code(s): I48.91 - UNSPECIFIED ATRIAL FIBRILLATION Status: Acute Qualifiers: Atrial fibrillation type: permanent Qualified Code(s): I48.21 - Permanent atrial fibrillation - Time spent with Patient (mins): 30 Plan - Discharge Medications Prescriptions: Apixaban [Eliquis] 10 mg PO BID #60 tab Metoprolol Tartrate [Lopressor] 25 mg PO TID 90 Days tab Metoprolol Tartrate 25 mg PO TID #90 tab Home Medications: Medication Instructions Recorded Confirmed Type Fludrocortisone Acetate [Florinef] 0.1 mg PO DAILY 08/27/16 03/13/20 History Rosuvastatin [Crestor] 10 mg PO HS 08/27/16 03/13/20 History metFORMIN [Glucophage] 1,000 mg PO BID-WM 08/27/16 03/13/20 History predniSONE [Prednisone] 7.5 mg PO DAILY 08/27/16 03/13/20 History Sildenafil Citrate 50 mg PO PRN PRN 02/28/18 03/13/20 History Aspirin [Ecotrin Low Strength] 81 mg PO DAILY 03/13/20 03/13/20 History Fenofibrate Nanocrystallized 145 mg PO DAILY 03/13/20 03/13/20 History [[facility]] Apixaban [Eliquis] 10 mg PO BID #60 tab 03/15/20 Rx HYDROcodone Bit/APAP 7.5/325 1 tab PO Q4H PRN tab 03/15/20 Rx [[place]] Metoprolol Tartrate 25 mg PO TID #90 tab 03/15/20 Rx Metoprolol Tartrate [Lopressor] 25 mg PO TID 90 Days tab 03/15/20 Rx Allergies: Penicillins Allergy (Verified 03/13/20 05:19) prasugrel [From Effient] Allergy (Verified 03/13/20 05:20) "DOESN'T WORK FOR ME" - Discharge Instructions Activity:: Activity as Tolerated Nourishment:: Heart Healthy Diet Equipment/Supplies:: Not Applicable - Follow up Plan Referrals: Ale Guzman MD [Primary Care Provider] - Disposition: HOME Quality - Care Measures CORE MEASURES:: N/A
--- NOTE | 2020-03-30 22:16 | EKG ---
Test Reason : SOB Blood Pressure : / mmHG Vent. Rate : 129 BPM Atrial Rate : 117 BPM P-R Int : 000 ms QRS Dur : 088 ms QT Int : 302 ms P-R-T Axes : 000 -83 031 degrees QTc Int : 442 ms Atrial fibrillation with rapid ventricular response Left axis deviation Low voltage QRS RSR' or QR pattern in V1 suggests right ventricular conduction delay Possible Lateral infarct , age undetermined Inferior infarct , age undetermined Abnormal ECG Confirmed by RAEGAN CAO DO ([id number]), commissioning editor UMESH CHUN ([id number]) on 03/30/2020 10:16:28 PM Referred By: Confirmed By:RAEGAN CAO DO
== END 2020-03-15 11:28 | disposition home or self-care (01) | DRG 299 ==
LOC: ERS 17:23 → ERHOLD 20:58 → 3SE 03-13 05:15
PROVIDERS: ADMIT Student in an Organized Health Care Education/Training Program; ATTEND Hospitalist
DX: T81.718A Complication of other artery following a procedure, not elsewhere classified, initial encounter (principal); J96.01 Acute respiratory failure with hypoxia; J98.11 Atelectasis; E27.1 Primary adrenocortical insufficiency; I48.21 Permanent atrial fibrillation; I26.99 Other pulmonary embolism without acute cor pulmonale; E78.5 Hyperlipidemia, unspecified; Z20.822 Contact with and (suspected) exposure to COVID-19; I10 Essential (primary) hypertension; E66.01 Morbid (severe) obesity due to excess calories; G47.33 Obstructive sleep apnea (adult) (pediatric); E11.9 Type 2 diabetes mellitus without complications; D72.829 Elevated white blood cell count, unspecified; Y83.9 Surgical procedure, unspecified as the cause of abnormal reaction of the patient, or of later complication, without mention of misadventure at the time of the procedure; Y92.239 Unspecified place in hospital as the place of occurrence of the external cause; Z88.0 Allergy status to penicillin; Z98.890 Other specified postprocedural states; Z79.82 Long term (current) use of aspirin; Z68.39 Body mass index [BMI] 39.0-39.9, adult
CPT/HCPCS: 36415; 36416; 71045; 71275; 80048; 80053; 83735; 84484; 85025; 85379; 87635; 93005; 93306; 96365; 96366; 96372; 96376; J1650; Q9967; U0003; U0005

== ENCOUNTER 2023-07-21 15:12 | Inpatient (IN) | payer MEDICARE ==
[2023-07-21 15:32] LABS: #Basophils Less than 0.03 10x3/uL (0.0-0.2); #Eosinphils Less than 0.03 10x3/uL (0.0-0.7); %Basophils 0.2 % (0.0-1.0); %Eosinophils 0.2 % (0.0-10.0); %Lymphocytes 12.8 % (21.0-51.0); %Neutrophils 81.6 % (42.0-75.0); Hematocrit 35.2 % (42.0-52.0); Hemoglobin 12.1 g/dL (14.0-18.0); Mean Corpuscular HGB CONC 34.4 g/dL (32.0-36.0); Mean Corpuscular Hemoglobin 33.7 pg (27.0-31.0); Mean Corpuscular Volume 98.1 fL (78.0-98.0); Mean Platelet Volume 10.9 fL (7.4-10.4); Platelet Count 168 10x3/uL (130-400); RBC Distribution Width 13.5 % (11.5-14.5); Red Blood Cell (RBC) Count 3.59 mill/uL (4.70-6.10)
[2023-07-21 15:54] LABS: Troponin I 0.014 ng/mL (< 0.028)
[2023-07-21 15:57] LABS: ALT (SGPT) 11 U/L (8-55); AST (SGOT) 24 U/L (5-34); Albumin 3.9 g/dL (3.4-4.8); Alkaline Phosphatase 21 U/L (40-110); Anion Gap 16 mmol/L (10-20); BUN (Urea Nitrogen) 10 mg/dL (8.4-25.7); Bilirubin, Total 0.7 mg/dL (0.2-1.2); Calc. Creatinine Clearance 0 mL/min (70-130); Calcium 10.5 mg/dL (7.8-10.44); Carbon Dioxide 23 mmol/L (23-31); Chloride 107 mmol/L (98-107); Estimated GFR 75; Globulin 2.6 g/dL (2.4-3.5); Glucose 130 mg/dL (83-110); Potassium 3.4 mmol/L (3.5-5.1); Protein, Total 6.5 g/dL (5.8-8.1); Sodium 143 mmol/L (136-145)
[2023-07-21] MEDS ORDERED: Lidocaine 1% w/Epinephrine 1:100K 20 ML VIAL ONE (17:11)
[2023-07-21] MEDS ORDERED: Ondansetron PF 4 MG/2 ML Vial IVP PRN (19:06)
[2023-07-21] MEDS ORDERED: Dextrose 5% in Water 1,000 ML IV PRN (19:06)
[2023-07-21] MEDS ORDERED: Glucagon 1 MG/ML KIT IM PRN (19:06)
[2023-07-21] MEDS ORDERED: Ondansetron ODT 4 MG TAB PO PRN (19:06)
[2023-07-21] MEDS ORDERED: Dextrose 50% Abboject 50 ML SYRINGE SLOW IVP PRN (19:06)
[2023-07-21 20:19] VITALS: BMI 33.5
[2023-07-21 20:37] LABS: Magnesium 1.9 mg/dL (1.6-2.6)
[2023-07-21 20:44] LABS: Troponin I 0.017 ng/mL (< 0.028)
[2023-07-21] MEDS: Ezetimibe 10 MG TAB PO SCH (22:17)
[2023-07-21] MEDS: Rosuvastatin 20 MG TAB PO SCH (22:17)
[2023-07-21] MEDS: Potassium Chloride 20 MEQ TAB PO SCH ×2 (22:31)
[2023-07-22 00:35] LABS: Troponin I 0.018 ng/mL (< 0.028)
[2023-07-22 04:25] LABS: #Basophils Less than 0.03 10x3/uL (0.0-0.2); %Basophils 0.3 % (0.0-1.0); %Eosinophils 1.2 % (0.0-10.0); %Lymphocytes 19.8 % (21.0-51.0); %Monocytes 9.2 % (0.0-10.0); %Neutrophils 69.3 % (42.0-75.0); Hematocrit 34.9 % (42.0-52.0); Hemoglobin 11.7 g/dL (14.0-18.0); Mean Corpuscular HGB CONC 33.5 g/dL (32.0-36.0); Mean Corpuscular Volume 98.3 fL (78.0-98.0); Mean Platelet Volume 11.1 fL (7.4-10.4); Platelet Count 176 10x3/uL (130-400); RBC Distribution Width 13.5 % (11.5-14.5); Red Blood Cell (RBC) Count 3.55 mill/uL (4.70-6.10)
[2023-07-22 04:38] LABS: Anion Gap 12 mmol/L (10-20); BUN (Urea Nitrogen) 11 mg/dL (8.4-25.7); Calc. Creatinine Clearance 115 mL/min (70-130); Calcium 9.8 mg/dL (7.8-10.44); Carbon Dioxide 25 mmol/L (23-31); Chloride 110 mmol/L (98-107); Estimated GFR 92; Glucose 109 mg/dL (83-110); Potassium 2.9 mmol/L (3.5-5.1); Sodium 144 mmol/L (136-145)
[2023-07-22] MEDS: Potassium Chloride 20 MEQ TAB PO SCH (05:08)
[2023-07-22] MEDS: Acetaminophen 325 MG TAB PO PRN (05:16)
[2023-07-22] MEDS: predniSONE 5 MG TAB PO SCH (09:00)
[2023-07-22] MEDS: Enoxaparin 40 MG (0.4 mL) SYRINGE SC SCH (09:00)
[2023-07-22] MEDS: Fludrocortisone Acetate 0.1 MG TAB PO SCH (09:01)
[2023-07-22] MEDS: Fenofibrate Nanocrystallized 145 MG TAB PO SCH (09:01)
[2023-07-22] MEDS: metFORMIN 500 MG TAB PO SCH (09:01)
[2023-07-22] MEDS: Aspirin 81 mg Enteric Coated Tablet PO SCH (09:01)
[2023-07-23 04:27] LABS: #Basophils Less than 0.03 10x3/uL (0.0-0.2); %Basophils 0.3 % (0.0-1.0); %Eosinophils 1.4 % (0.0-10.0); %Lymphocytes 24.5 % (21.0-51.0); %Monocytes 8.5 % (0.0-10.0); %Neutrophils 65.1 % (42.0-75.0); Hemoglobin 12.1 g/dL (14.0-18.0); Mean Corpuscular HGB CONC 33.6 g/dL (32.0-36.0); Mean Corpuscular Hemoglobin 33.1 pg (27.0-31.0); Mean Corpuscular Volume 98.4 fL (78.0-98.0); Mean Platelet Volume 11.3 fL (7.4-10.4); Platelet Count 185 10x3/uL (130-400); RBC Distribution Width 13.8 % (11.5-14.5); Red Blood Cell (RBC) Count 3.66 mill/uL (4.70-6.10)
[2023-07-23 04:44] LABS: Anion Gap 13 mmol/L (10-20); BUN (Urea Nitrogen) 9 mg/dL (8.4-25.7); Calc. Creatinine Clearance 128 mL/min (70-130); Calcium 10.2 mg/dL (7.8-10.44); Carbon Dioxide 23 mmol/L (23-31); Chloride 110 mmol/L (98-107); Estimated GFR 94; Glucose 131 mg/dL (83-110); Potassium 3.1 mmol/L (3.5-5.1); Sodium 143 mmol/L (136-145)
[2023-07-23] MEDS ORDERED: Vancomycin HCl 500 MG VIAL ONE (06:07)
[2023-07-23] MEDS ORDERED: LevoFLOXacin D5W 500 mg (100 mL) BAG ONE (06:07)
[2023-07-23] MEDS ORDERED: Clindamycin/D5W 600 mg/50 ml Premix Bag ONE (06:07)
[2023-07-23] MEDS: Potassium Chloride 20 MEQ TAB PO SCH (06:16)
[2023-07-23] MEDS ORDERED: Lidocaine 1% (PF) 30 ML VIAL ONE (06:20)
[2023-07-23] MEDS ORDERED: Midazolam HCl 2 mg/2 ml Vial ONE ×2 (07:11→08:01)
[2023-07-23] MEDS ORDERED: hydrALAZINE 20 MG/ML VIAL ONE (08:26)
[2023-07-23] MEDS: HYDROcodone/Acetaminophen 5/325 mg Tablet PO SCH (15:22)
[2023-07-23] MEDS ORDERED: Acetaminophen/Codeine 30-300mg Tablet PO PRN (15:46)
[2023-07-23 16:28] VITALS: BP 160/82; TEMP 98
== END 2023-07-23 19:38 | disposition home or self-care (01) | DRG 243 ==
LOC: ERS 15:12 → 2SW 18:26 → OBSVTOIN 07-22 15:47
PROVIDERS: ADMIT Internal Medicine; ATTEND Family Medicine
PROC: 0JH606Z Insertion of Pacemaker, Dual Chamber into Chest Subcutaneous Tissue and Fascia, Open Approach (ICD-10-PCS; principal; 2023-07-23)
PROC: 02H63JZ Insertion of Pacemaker Lead into Right Atrium, Percutaneous Approach (ICD-10-PCS; 2023-07-23)
PROC: 02HK3JZ Insertion of Pacemaker Lead into Right Ventricle, Percutaneous Approach (ICD-10-PCS; 2023-07-23)
DX: I49.5 Sick sinus syndrome (principal); E27.1 Primary adrenocortical insufficiency; I44.2 Atrioventricular block, complete; I48.0 Paroxysmal atrial fibrillation; E78.5 Hyperlipidemia, unspecified; G47.33 Obstructive sleep apnea (adult) (pediatric); I25.10 Atherosclerotic heart disease of native coronary artery without angina pectoris; E87.6 Hypokalemia; I10 Essential (primary) hypertension; E11.9 Type 2 diabetes mellitus without complications; Z88.0 Allergy status to penicillin; Z88.8 Allergy status to other drugs, medicaments and biological substances; Z79.899 Other long term (current) drug therapy; Z79.52 Long term (current) use of systemic steroids; Z79.84 Long term (current) use of oral hypoglycemic drugs; Z79.82 Long term (current) use of aspirin; Z90.49 Acquired absence of other specified parts of digestive tract; Z99.89 Dependence on other enabling machines and devices
CPT/HCPCS: 33208; 36415; 36416; 70450; 71046; 80048; 80053; 83690; 83735; 83880; 84484; 85025; 85379; 93005; 93306; 93880; 96372; 99152; 99153; C1785; C1898; G0378; J0360; J1650; J1956; J2001; J2250; J3370; J3490; J7512

== ENCOUNTER 2023-12-29 14:39 | Outpatient (CLI) | payer MEDICARE | END 2023-12-29 14:40 | disposition home or self-care (01) | LOC: BICRAD 14:39 | PROVIDERS: ATTEND Physician Assistant Medical | DX: D50.9 Iron deficiency anemia, unspecified (principal) | CPT/HCPCS: 74018 ==